=== PATIENT | male | born 1945 | race Caucasian/White ===

== ENCOUNTER 2019-03-09 13:48 | Outpatient (CLI) | payer MEDICARE ==
--- NOTE | 2019-03-09 15:06 | MRI ---
EXAM: Lumbar spine MRI without contrast. HISTORY: Bilateral lower extremity leg pain, right greater than left, sciatic leg pain COMPARISON: None FINDINGS: Multiplanar, multisequence MRI examination of the lumbar spine is performed. The conus medullaris region appears unremarkable. Several areas of very tiny foci of type I endplate changes including T12-L1, L2-L3, and L4-L5. Generalized ligament facet hypertrophic changes. T12-L1 disc level: Unremarkable. L1-L2 disc level: Small central annular fissure with very mild thinning of the lateral recesses L2-L3 disc level: Small central annular fissure with very mild thinning of the lateral recesses, mild bilateral foraminal stenosis. L3-L4 disc level: Moderate bilateral recess stenosis with mild bilateral foraminal stenosis. L4-L5 disc level: Moderate central canal and moderate to severe bilateral recess stenosis with a left paracentral extruded disc herniation with some minimal caudal migration resulting in depression of the left L5 nerve root and associated left foraminal stenosis. L5-S1 disc level: Diffuse disc osteophytosis with mild central canal and moderate lateral recess and moderate to severe bilateral foraminal stenosis. 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 Mult ilevel areas of mild type I endplate changes.
== END 2019-03-09 13:49 | disposition home or self-care (01) ==
LOC: SCSMRI 13:48
PROVIDERS: ATTEND Psychiatry & Neurology Neurology
DX: M54.30 Sciatica, unspecified side (principal); M48.061 Spinal stenosis, lumbar region without neurogenic claudication
CPT/HCPCS: 72148

== ENCOUNTER → 2024-11-29 | Day surgery (SDC) | payer OTHER ==
[~2024-11-29] MED LIST: Sodium Bicarbonate 2.5 MEQ/5 ML SDV ONE
[2024-11-29 11:48] LABS: CSF Source CSF; Clarity Clear (Clear); Tube # 4
[2024-12-03 07:15] LABS: HSV 1 - DNA, CSF Negative (Negative); HSV 2 - DNA, CSF Negative (Negative)
[2024-12-03 15:12] LABS: VDRL, CSF Non Reactive (Non Rea:<1:1)
== END ==
LOC: RAD 08:06
PROVIDERS: ATTEND Psychiatry & Neurology Neurology
PROC: 00JU3ZZ Inspection of Spinal Canal, Percutaneous Approach (ICD-10-PCS; principal; 2024-11-29)
DX: M40.57 Lordosis, unspecified, lumbosacral region (principal); R90.89 Other abnormal findings on diagnostic imaging of central nervous system
CPT/HCPCS: 62270; 84157; 86592; 86612; 86635; 86698; 87070; 87205; 87529; 87899; 89051